=== PATIENT | male | born 1990 ===

== ENCOUNTER 2024-12-13 13:55 | Emergency (ER) | payer OTHER, SELFPAY ==
[2024-12-13 13:55] VITALS: BMI 25.3
[2024-12-13 13:56] VITALS: BP 147/96
--- NOTE | 2024-12-13 14:48 | ED.GENMED ---
History of Present Illness
General
Chief Complaint: Abnormal Lab Value
Source: patient
Exam Limitations: none
Time Seen by Provider: 12/13/24 14:07
Nursing documentation reviewed up to this point in time: agreed with
History of Present Illness
History of Present Illness:
Patient is a 33 male who presents to the ER for elevated liver enzymes. Last Wednesday 9 days ago he started with headaches body aches and had a fever of 103.6. On Wednesday 4 days ago he had several episodes of diarrhea. He vomited once. On
Wednesday he went to urgent care and had negative testing for COVID flu and strep. He has Small amount of blood in his urine with started on amoxicillin for possible UTI. Since then his culture came back negative and he stopped amoxicillin. His
family doctor saw him and did blood work and sent him here for elevation in his LFTs. He drinks alcohol socially about twice a week.
Today he feels okay. never had a sore throat with his symptoms.
He denies any abdominal pain.
Phy Exam
General Physical Exam
General Presentation: no apparent distress
General age: appears stated age
General Skin: warm and dry
General Habitus: normal
General Mental: alert
General Hydration: appears well hydrated
Cardiovascular Exam
Cardiovascular Exam: regular rate/rhythm, no murmur and normal peripheral pulses
Pulmonary Exam
Pulmonary Exam: lungs clear and no respiratory distress
Gastrointestinal Exam
Gastrointestinal Exam: normal bowel sounds, non tender and soft
Neurological Exam
Neurological Exam: alert and oriented x3
Musculoskeletal Exam
Musculoskeletal Exam: full ROM
Skin Exam
Skin Exam: normal color and warm/dry
Psychiatric Exam
Psychiatric Exam: normal mood/affect
Course
Orders/Labs/Results
Orders:
Orders
12/13/24 14:41
IV Insert/Care/Rem.- Treatment PRN
12/13/24 14:43
Complete Blood Count/With Diff Urgent
Urinalysis Reflex To Culture Urgent
Date Specimen was Collected: 12/13/24
Time Specimen was Collected: 14:42
Urine Microscopic Reflex Cult Urgent
12/13/24 14:48
0.9% Sodium Chloride 1000 ml [Nss] 1,000 ml IV BOLUS
12/13/24 14:54
Monotest Urgent
12/13/24 15:16
Comprehensive Metabolic Panel Urgent
Lipase Urgent
12/13/24 17:48
Ketorolac [Toradol] 15 mg IV NOW STA
Abnormal Lab Results
12/13/24 12/13/24 12/13/24
14:43 14:54 15:16
WBC 11.3 H 10^3/uL
(4.8-10.8)
RBC 4.42 L 10^6/uL
(4.70-6.10)
Plt Count 129 L 10^3/uL
(130-400)
MPV 11.5 H fL
(7.4-10.4)
Abs Immat Gran (auto) 0.1 H 10^3/uL
(0-0.05)
Absolute Neuts (auto) 1.3 L 10^3/uL
(1.4-6.5)
Absolute Lymphs (auto) 8.7 H 10^3/uL
(1.2-3.4)
Absolute Monos (auto) 1.0 H 10^3/uL
(0.1-0.6)
Immature Gran % 0.9 H %
(0-0.5)
Neutrophils % 11.6 L %
(42.2-75.2)
Lymphocytes % 76.8 H %
(20.5-51.1)
Glucose 104 H mg/dl
(70-99)
Total Bilirubin 3.3 H mg/dl
(0.2-1.3)
AST 699 H* U/L
(17-59)
ALT 1311 H* U/L
(0-50)
Alkaline Phosphatase 302 H U/L
(38-126)
Ur Occult Blood Reflex 2+ A
(Negative)
Urine RBC 3-6 A /HPF
(0-2)
Urine Bacteria (Reflex) Few A
(Negative)
Urine Albumin (Reflex) 1+ A
(Neg - Trace)
Monoscreen Positive A
(Negative)
12/13/24 14:43
12/13/24 15:16
Vital Signs
Initial and Last Documented VS:
Initial Vital Signs
Temp Pulse Resp BP Pulse Ox
98.3 F 96 18 147/96 98
12/13/24 13:56 12/13/24 13:56 12/13/24 13:56 12/13/24 13:56 12/13/24 13:56
Last Documented Vital Signs
Temp Pulse Resp BP Pulse Ox
99.7 F 92 17 113/72 100
12/13/24 17:44 12/13/24 17:44 12/13/24 17:44 12/13/24 17:44 12/13/24 17:44
MDM/Problems Addressed
Differential Diagnosis Includes:
not limited to: mono
MDM/Problems Addressed:
Patient is a 33-year-old male presenting with elevated liver enzymes. Patient had fevers since last week. Patient was seen urgent care and COVID flu are negative. Patient had blood work done by PCP and was sent to the ER for evaluation of these
elevated liver enzymes. Patient is mono positive which does explain his previous symptoms. His bilirubin is 3.3 his AST 699 ALT 1311 he has not jaundice. He denies any abdominal pain abdomen soft nontender no suspicion for acute cholecystitis or
cholangitis.
he is very well-appearing and stable. He does not play sports however discussed with patient to avoid exercise avoid lifting avoid sports until cleared by family doctor. He should stay hydrated supportive care reviewed. Also instructed patient
to avoid Tylenol and take ibuprofen if needed and avoid alcohol.
*Pulse Oximetry
SaO2: 98
Oxygen Mode of Delivery: Room air
Patient hypoxic: no
*Critical Care Note
Total Time (30-74mins, 75-104mins- exclusive of procedures): Not Applicable
ED Attending Note
-
Portions of this chart may have been created with voice recognition software.� Occasional wrong word or��sound alike� substitutions may have occurred due to the inherent limitations of voice recognition software.
Discharge Plan
Departure
Patient Disposition: Home (Routine Discharge)
Date of Disposition: 12/13/24
Time of Disposition: 18:05
Patient with high blood pressure during this ER visit?: Yes
Condition: Fair
Covid-19: Not Applicable
Discharge Problem:
Mononucleosis
Instructions: BLOOD PRESSURE, Mononucleosis
Prescriptions:
No Action
acetaminophen [Tylenol] 325 mg Tablet
650 mg PO Q6HPRN PRN (Reason: mild pain)
doxycycline hyclate 100 mg Capsule
100 mg PO DAILY
Theragen Tablet
1 tab PO DAILY
fexofenadine [Mercedes] 180 mg Tablet
180 mg PO DAILY
Referrals:
UNKNOWN - PT DOES,NOT KNOW [Family Provider]
Activity Restrictions/Additional Instructions:
As discussed you are positive for mono your liver functions were elevated which is consistent with mononucleosis. Stay well-hydrated be sure to get plenty rest. No contact sports exercise .
Follow-up closely with your family doctor in the next several days for reevaluation. You will need your LFTs checked again to ensure that they resolve and come back to normal.
Return if any worsening of symptoms including if any abdominal pain worsening fevers or any further concerns.
Interventions
Interventions:
*Risk Screen - Suicide Last Done: 12/13/24 13:56
*General Assessment Last Done: 12/13/24 13:56
Discharge Date and Time
Print Language: JAPANESE
[2024-12-13] MEDS: NSS 1000 IV (14:52)
[2024-12-13 15:15] LABS: Urine Character Clear (Clear)
[2024-12-13 15:19] LABS: Hematocrit 39.5 % (39.0-52.0); Hemoglobin 13.7 g/dL (13.0-18.0); Mean Corp Hgb Conc. 34.7 g/dL (33.0-37.0); Mean Corpuscular Volume 89.4 fL (80.0-94.0); Platelet Count 129 10^3/uL (130-400); Red Cell Dist. Width 12.8 % (11.5-14.5)
[2024-12-13 15:30] LABS: Nucleated Red Blood Cells % 0 % (-)
[2024-12-13 15:36] LABS: Urine Squamous Cell 0-2 /LPF (Few); Urine White Cell 0-2 /HPF (0-5)
[2024-12-13 15:56] LABS: Albumin 3.7 g/dl (3.5-5.0); Alkaline Phosphatase 302 U/L (38-126); Blood Urea Nitrogen 10 mg/dl (9-20); Calcium 8.5 mg/dl (8.4-10.2); Carbon Dioxide 29 mmol/L (22-30); Chloride 100 mmol/L (98-107); Estimated Creatinine Clearance > 125 ml/min; Glucose 104 mg/dl (70-99); Lipase 108 U/L (23-300); Potassium 4.1 mmol/L (3.5-5.1); Sodium 135 mmol/L (135-145); Total Protein 6.8 g/dl (6.3-8.2); eGFR > 60.00
[2024-12-13 17:44] VITALS: BP 113/72
[2024-12-13] MEDS: TORADOL 15 MG IV (17:52)
[2024-12-13 18:01] LABS: ALT (SGPT) 1311 U/L (0-50); AST (SGOT) 699 U/L (17-59)
== END 2024-12-13 18:24 | disposition home or self-care (01) ==
LOC: EMR 13:55
PROVIDERS: Nurse Practitioner; EMERGENCY PHYSICIAN Emergency Medicine
DX: B27.90 Infectious mononucleosis, unspecified without complication (principal); R51.9 Headache, unspecified
CPT/HCPCS: 96374; 96361; 99284; 80053; 81003; 81015; 83690; 85025; 86308